=== PATIENT | female | born 1990 | race Caucasian/White ===

== ENCOUNTER 2017-03-15 13:18 | Emergency (ER) | payer OTHER ==
[2017-03-15 13:26] VITALS: BP 99/64
[2017-03-15] MEDS ORDERED: TETANUS/DIPHTHERIA/PERTUSSIS 0.5 ML SYRINGE IM ONE ×2 (13:50→14:02)
--- NOTE | 2017-03-15 13:54 | ED Physician Documentation ---
History of Present Illness - Stated complaint Stated Complaint: KNIFE PUNCTURE/KNEE - Chief complaint Chief Complaint: General - History obtained from History obtained from: Patient (pt is here for evaluation of a laceration to her left knee. she states that she stabbed her left knee with a kitchen knife while opening a box. Pain and bleeding afterward.) Review of Systems Unable to obtain: Unresponsive Constitutional: denies: Fever, Chills Skin: reports: Laceration (s) (left knee) Musculoskeletal: reports: Joint pain (left knee), Pain with weight bearing ( left knee). denies: Extremity pain, Joint swelling Neurologic: reports: Focal weakness, Numbness PD PAST MEDICAL HISTORY - Past Medical History Past Medical History: No - Past Surgical History Past Surgical History: No - Present Medications Home Medications: Ambulatory Orders Medication Instructions Recorded Confirmed No Known Home Medications [No 03/15/17 03/15/17 Known Home Medications] - Allergies Allergies/Adverse Reactions: Allergies Allergy/AdvReac Type Severity Reaction Status Date / Time No Known Drug Allergies Allergy Verified 03/15/17 13:26 - Social History Does the pt smoke?: No Smoking Status: Never smoker Does the pt drink ETOH?: No Does the pt have substance abuse?: No - Immunizations Immunizations are current?: No Immunizations: TDAP >10years/unknown PD ED PE NORMAL - Vitals Vital signs reviewed: Yes - General General: Alert and oriented X 3 - Derm Derm: Other (2mm laceration to the medial superior area of the left knee, no active bleeding, + pain with bending of the knee. ) - Extremities Extremities: No deformity, No edema, No calf tenderness / cord - Neuro Neuro: Alert and oriented X 3, Other (sensation intact to light touch to the left knee and left leg and foot. ) - Psych Psych: Normal mood, Normal affect Results - Vitals Vitals: Vital Signs - 24 hr 03/15/17 13:23 Temperature 36.4 C L Heart Rate 76 Respiratory 18 Rate Blood Pressure 99/64 O2 Saturation 100 Oxygen O2 Source Room air PD MEDICAL DECISION MAKING - ED course Complexity details: d/w patient ED course: up dated Td in the ER. Pt able to bend the knee. the area was cleaned. No indication for x-rays. Will hold on ABX for now. Wound is small enough and with the puncture will hold on sutures for now to allow drainage. discussed return precautions with the patient. Departure - Departure Disposition: 01 Home, Self Care Clinical Impression: Laceration Condition: Good Instructions: Wound Care Follow-Up: primary,care provider [Other] Comments: keep the area clean and dry. return to the ER for any new or worsening symptoms.
== END 2017-03-15 14:14 | disposition home or self-care (01) ==
LOC: ED 13:18
DX: S81.012A Laceration without foreign body, left knee, initial encounter (principal); W26.0XXA Contact with knife, initial encounter; Z23 Encounter for immunization
CPT/HCPCS: 90471; 99283